=== PATIENT | female | born 1955 | race Caucasian/White ===

== ENCOUNTER 2017-05-10 05:40 | Outpatient (CLI) | payer OTHER ==
[~2017-05-10] VITALS: Ht 158.8 cm; Wt 95.3 kg
[2017-05-13] MEDS ORDERED: NF-DICLOTA PO (14:59)
== END 2017-05-10 12:21 ==
LOC: PREOP 05:40
PROVIDERS: ATTEND Surgery
DX: Z01.818 Encounter for other preprocedural examination (principal); Z12.11 Encounter for screening for malignant neoplasm of colon; K21.9 Gastro-esophageal reflux disease without esophagitis

== ENCOUNTER 2017-05-13 14:00 | Day surgery (SDC) | payer OTHER ==
[~2017-05-13] VITALS: Ht 158.8 cm; Wt 95.3 kg
--- OUTSIDE RECORDS SUMMARY | 2017-05-13 14:05 | XMS REPORT ---
Author Author SIMI GARCIA [facility] eClinicalWorks Address Unknown Phone Unavailable Care Team Providers Care Nitroglycerin Separator Operator Name Role Phone SIMI GARCIA CP Unavailable Allergies, Adverse Reactions, Alerts Substance Reaction Event Type N.K.D.A. Info Not Available Non Drug Allergy Problems Problem Type Condition Code Onset Dates Condition Status Assessment Non-compliant behavior R46.89 Active Problem Diabetes type 2, uncontrolled E11.65 Active Assessment Diabetes type 2, uncontrolled E11.65 Active Problem Denial R45.89 Active Problem Obesity E66.9 Active Problem Non-compliant behavior R46.89 Active Problem Gastroesophageal reflux disease without esophagitis K21.9 Active Problem Noncompliance Z91.19 Active Problem Morbid obesity due to excess calories E66.01 Active Problem Constipation, unspecified constipation type K59.00 Active Assessment Gastroesophageal reflux disease without esophagitis K21.9 Active Assessment Constipation, unspecified constipation type K59.00 Active Assessment Morbid obesity due to excess calories E66.01 Active Assessment Denial R45.89 Active Medications Medication Code System Code Instructions Start Date End Date Status Dosage Chlorzoxazone [facility] 44418461120 500 MG TAKE ONE TABLET BY MOUTH ONCE DAILY NEEDED FOR PAIN. Pen [place] [facility] [address]-27 31G X 6 MM Once a day Aug 31, 2015 as directed Victoza [facility] [address]-22 18 MG/3ML Subcutaneous Once a day Jul 26, 2015 0.3 ml Hydrochlorothiazide [facility] 53594323907 12.5 MG 1 capsule by Oral route 1 time per day [place] [facility] [address]-72 5-325 MG Orally PRN Jul 26, 2015 1 tablet as needed Nexium [facility] [address]-60 40 MG Orally Once a day Nov 03, 2015 1 capsule Gabapentin [facility] [address]-23 600 mg December 07, 2014 1 Tablet by Oral route every 8 hours with food Celebrex [facility] [address]-49 200 MG Orally Once a day as needed for pain December 14, 2014 1 capsule Invokana [facility] [address]-80 100 MG Orally Every AM Oct 05, 2015 1 tablet Metformin HCl [facility] 75326348433 1000 MG TAKE 1 TABLET BY MOUTH 2 TIMES PER DAY WITH FOOD Xenical [facility] [address]-98 120 MG Orally 2 times a day Nov 03, 2015 1 capsule with meals Lovastatin [facility] [address]-32 40 mg December 07, 2014 take 1 tablet ( 40 mg) by oral route once daily with the evening meal Lidoderm [facility] [address]-92 5 %(700 mg/patch) Jul 07, 2014 1 PATCH by Topical route 1 time per day (remove patch(s) after 12 hours) Requip [facility] [address]-83 2 MG Orally Once a day 1 tablet by Oral route 1 time per day Amitriptyline HCl [facility] [address]-48 75 MG Orally Once a day February 15, 2015 1 tablet at bedtime for sleep Lisinopril [facility] 78957342753 20 MG take 1 tablet by Oral route 1 time per day Ferrous Sulfate [facility] [address]-50 325 (65 Fe) MG Orally Once a day 1 Tablet by Oral route 1 time per day 1 tablet by oral route 1 time per day Colace [facility] 61135213830 100 MG 1 capsule by Oral route 2 times per day PRN Procedures Procedure Coding System Code Date GLUCOSE BLOOD TEST CPT-4 59160 Nov 03, 2015 Office Visit, Est Pt., Level 4 CPT-4 98466 Nov 03, 2015 GLYCATED HEMOGLOBIN TEST CPT-4 53162 Nov 03, 2015 Vital Signs Date/Time: Nov 03, 2015 Temperature 98.3 F Weight 215.6 lbs Height 62 in BMI 39.43 Index Blood Pressure Diastolic 82 mmHg Blood Pressure Systolic 118 mmHg Cardiac Monitoring Heart Rate 96 bpm Results No Known Results Summary Purpose eClinicalWorks Submission
--- OUTSIDE RECORDS SUMMARY | 2017-05-13 14:05 | XMS REPORT ---
Author Author LOLIS RAYO [facility] eClinicalWorks Address Unknown Phone Unavailable Care Team Providers Care Leg Breaker Name Role Phone LOLIS RAYO CP Unavailable Allergies No Known Allergies Problems Problem Type Condition Code Onset Dates Condition Status Problem Depression F32.9 Active Problem Other chronic pain G89.29 Active Problem Reina infection of genital region B37.49 Active Problem New daily persistent headache G44.52 Active Problem Restless legs syndrome G25.81 Active Problem Dizziness R42 Active Problem Chronic tension-type headache, intractable G44.221 Active Problem Pain in left shoulder M25.512 Active Problem Other iron deficiency anemia D50.8 Active Problem Arthralgia, unspecified joint M25.50 Active Problem Gastroesophageal reflux disease without esophagitis K21.9 Active Problem Constipation, unspecified constipation type K59.00 Active Problem Diabetes type 2, uncontrolled E11.65 Active Problem Noncompliance Z91.19 Active Problem Denial R45.89 Active Problem Non-compliant behavior R46.89 Active Problem Morbid obesity due to excess calories E66.01 Active Problem Neuropathy G62.9 Active Problem Obesity E66.9 Active Problem Insomnia G47.00 Active Medications Medication Code System Code Instructions Start Date End Date Status Dosage Cyclobenzaprine HCl [facility] 53996566709 10 MG orally twice daily TAKE 1 TABLET BY MOUTH TWICE DAILY NEEDED FOR MUSCLE PAIN Results No Known Results Summary Purpose eClinicalWorks Submission
--- OUTSIDE RECORDS SUMMARY | 2017-05-13 14:05 | XMS REPORT ---
Author Author SIMI GARCIA Organization eClinicalWorks Address Unknown Phone Unavailable Care Team Providers Care Roulette Dealer Name Role Phone SIMI GARCIA CP Unavailable Allergies No Known Allergies Problems Problem Type Condition Code Onset Dates Condition Status Problem Diabetes type 2, uncontrolled E11.65 Active Problem Noncompliance Z91.19 Active Medications No Known Medications Results No Known Results Summary Purpose eClinicalWorks Submission
--- OUTSIDE RECORDS SUMMARY | 2017-05-13 14:05 | XMS REPORT ---
Author Author LOLIS RAYO Organization eClinicalWorks Address Unknown Phone Unavailable Care Team Providers Care Mottler Operator Name Role Phone LOLIS RAYO CP Unavailable Allergies No Known Allergies Problems Problem Type Condition Code Onset Dates Condition Status Problem Neuropathy G62.9 Active Problem Depression F32.9 Active Problem Insomnia G47.00 Active Problem Other iron deficiency anemia D50.8 Active Problem Arthralgia, unspecified joint M25.50 Active Problem Restless legs syndrome G25.81 Active Problem Other chronic pain G89.29 Active Problem Reina infection of genital region B37.49 Active Problem Chronic tension-type headache, intractable G44.221 Active Problem Pain in left shoulder M25.512 Active Problem Diabetes type 2, uncontrolled E11.65 Active Problem Noncompliance Z91.19 Active Problem Morbid obesity due to excess calories E66.01 Active Problem Obesity E66.9 Active Problem Gastroesophageal reflux disease without esophagitis K21.9 Active Problem Denial R45.89 Active Problem Constipation, unspecified constipation type K59.00 Active Problem Non-compliant behavior R46.89 Active Medications No Known Medications Results No Known Results Summary Purpose eClinicalWorks Submission
--- OUTSIDE RECORDS SUMMARY | 2017-05-13 14:05 | XMS REPORT ---
Author Author SIMI GARCIA Organization eClinicalWorks Address Unknown Phone Unavailable Care Team Providers Care Floor Associate Name Role Phone SIMI GARCIA CP Unavailable Allergies No Known Allergies Problems Problem Type Condition Code Onset Dates Condition Status Problem Diabetes type 2, uncontrolled E11.65 Active Problem Noncompliance Z91.19 Active Medications Medication Code System Code Instructions Start Date End Date Status Dosage Victoza [facility] [address]-47 18 MG/3ML Subcutaneous Once a day Jul 26, 2015 0.3 ml Invokana [facility] [address]-41 100 MG Orally Every AM Oct 05, 2015 1 tablet Results No Known Results Summary Purpose eClinicalWorks Submission
--- OUTSIDE RECORDS SUMMARY | 2017-05-13 14:05 | XMS REPORT ---
Author Author LOLIS RAYO [facility] eClinicalWorks Address Unknown Phone Unavailable Care Team Providers Care Spa Host Name Role Phone LOLIS RAYO CP Unavailable [...] Instructions Start Date End Date Status Dosage Sertraline HCl [facility] [address]-96 50 mg Orally Once a day Jun 20, 2016 1 tablet Ropinirole HCl [facility] [address]-84 4 MG Orally Once a day May 08, 2016 1 tablet 1 to 3 hours before bedtime Results No Known Results Summary Purpose eClinicalWorks Submission
--- OUTSIDE RECORDS SUMMARY | 2017-05-13 14:05 | XMS REPORT ---
Author Author SIMI GARCIA Organization eClinicalWorks Address Unknown Phone Unavailable Care Team Providers Care Financial Analyst Intern Name Role Phone SIMI GARCIA CP Unavailable Allergies No Known Allergies Problems Problem Type Condition Code Onset Dates Condition Status Problem Noncompliance Z91.19 Active Problem Diabetes type 2, uncontrolled E11.65 Active Problem Non-compliant behavior R46.89 Active Problem Denial R45.89 Active Problem Neuropathy G62.9 Active Problem Constipation, unspecified constipation type K59.00 Active Problem Gastroesophageal reflux disease without esophagitis K21.9 Active Problem Obesity E66.9 Active Problem Morbid obesity due to excess calories E66.01 Active Medications Medication Code System Code Instructions Start Date End Date Status Dosage Trulicity [facility] [address]-87 1.5 MG/0.5ML Subcutaneous once weekly December 0.5 ml Results No Known Results Summary Purpose eClinicalWorks Submission
--- OUTSIDE RECORDS SUMMARY | 2017-05-13 14:05 | XMS REPORT ---
Author Author LOLIS RAYO Organization [facility] Address [address] [place] [address] Care Team Providers Care Dust Mill Operator Name Role Phone WEST RAYONETTE Unavailable PROBLEMS Type Condition ICD9-CM Code [id number] Code Onset Dates Condition Status SNOMED Code Problem Reina infection of genital region B37.49 Active 046530746 Problem Pain in left shoulder M25.512 Active 23551086 Problem Other chronic pain G89.29 Active 15787664 Problem Dizziness R42 Active 303021565 Problem Diabetes type 2, uncontrolled E11.65 Active 781773893 Problem New daily persistent headache G44.52 Active 580878106 Problem Arthralgia, unspecified joint M25.50 Active 81660457 Problem Chronic tension-type headache, intractable G44.221 Active 156079727 Problem Restless legs syndrome G25.81 Active 79078963 Problem Other iron deficiency anemia D50.8 Active 29027849 Problem Constipation, unspecified constipation type K59.00 Active 22060485 Problem Morbid obesity due to excess calories E66.01 Active 730983415 Problem Noncompliance Z91.19 Active 7912609 Problem Gastroesophageal reflux disease without esophagitis K21.9 Active 793280223 Problem Non-compliant behavior R46.89 Active 000249734 Problem Neuropathy G62.9 Active 844991441 Problem Obesity E66.9 Active 589317710 Problem Insomnia G47.00 Active 897190718 Problem Denial R45.89 Active 47168459 Problem Depression F32.9 Active 84674069 ALLERGIES Unknown Allergies SOCIAL HISTORY No smoking Hx information available PLAN OF CARE VITAL SIGNS MEDICATIONS Unknown Medications RESULTS No Results PROCEDURES No Known procedures IMMUNIZATIONS No Known Immunizations
--- OUTSIDE RECORDS SUMMARY | 2017-05-13 14:06 | XMS REPORT ---
Author Author SIMI GARCIA Organization eClinicalWorks Address Unknown Phone Unavailable Care Team Providers Care Route Vending Machine Servicer Name Role Phone SIMI GARCIA CP Unavailable Allergies No Known Allergies Problems Problem Type Condition Code Onset Dates Condition Status Problem Diabetes type 2, uncontrolled E11.65 Active Problem Noncompliance Z91.19 Active Medications Medication Code System Code Instructions Start Date End Date Status Dosage Ferrous Sulfate [facility] [address]-24 325 (65 Fe) MG Orally Once a day 1 Tablet by Oral route 1 time per day 1 tablet by oral route 1 time per day Results No Known Results Summary Purpose eClinicalWorks Submission
--- OUTSIDE RECORDS SUMMARY | 2017-05-13 14:06 | XMS REPORT ---
Author LOLIS Stinson [facility] eClinicalWorks Address Unknown Phone Unavailable Care Team Providers Care Wound Care Nurse Name Role Phone LOLIS RAYO CP Unavailable Allergies, Adverse Reactions, Alerts Substance Reaction Event Type Victoza rash Drug Allergy Problems Problem Type Condition Code Onset Dates Condition Status Assessment Restless legs syndrome G25.81 Active Assessment Depression F32.9 Active Assessment Insomnia G47.00 Active Assessment New daily persistent headache G44.52 Active Assessment Dizziness R42 Active Problem Neuropathy G62.9 Active Assessment Neuropathy G62.9 Active Problem Insomnia G47.00 Active Assessment Gastroesophageal reflux disease without esophagitis K21.9 Active Problem Depression F32.9 Active Problem Other chronic pain G89.29 Active Problem Reina infection of genital region B37.49 Active Problem New daily persistent headache G44.52 Active Problem Restless legs syndrome G25.81 Active Assessment Diabetes type 2, uncontrolled E11.65 Active Assessment Noncompliance Z91.19 Active Problem Dizziness R42 Active Assessment Constipation, unspecified constipation type K59.00 Active Problem Chronic tension-type headache, intractable G44.221 [...] calories E66.01 Active Problem Obesity E66.9 Active Medications Medication Code System Code Instructions Start Date End Date Status Dosage Docusate Sodium [facility] 10120798837 100 MG TAKE 1 CAPSULE TWO TIMES DAILY NEEDED Trulicity [facility] [address]-61 1.5 MG/0.5ML Subcutaneous once weekly December 0.5 ml Invokana [facility] [address]-18 300 MG Orally Once a day in AM Oct 05, 2015 1 tablet Trazodone HCl [facility] 68786564012 100 MG Orally Once a day 1 tablet at bedtime Gabapentin [facility] 97804672791 600 MG 1 Tablet by Oral route every 8 hours with food Topamax [facility] [address]-65 50 mg Orally Twice a day May 08, 2016 1 tablet Ferrous Sulfate [facility] 40514655684 325 (65 Fe) MG TAKE 1 TABLET DAILY MiraLax [facility] [address]-79 17 gm/dose Orally Once a day January 31, 2016 as directed Celebrex [facility] [address]-58 200 MG Orally Once a day as needed for pain December 14, 2014 1 capsule Ropinirole HCl [facility] [address]-33 4 MG Orally Once a day May 08, 2016 1 tablet 1 to 3 hours before bedtime Hydrochlorothiazide [facility] 49993898788 12.5 MG TAKE 1 CAPSULE BY MOUTH ONCE DAILY. Nexium [facility] [address]-50 40 mg Once a day TAKE ONE CAPSULE BY MOUTH ONCE DAILY. Pen [place] [facility] [address]-86 31G X 6 MM Once a day Aug 31, 2015 as directed Colace [facility] 85813644179 100 MG 1 capsule by Oral route 2 times per day PRN Metformin HCl [facility] 10299620074 1000 MG TAKE 1 TABLET BY MOUTH 2 TIMES PER DAY WITH FOOD Lovastatin [facility] 27132845815 40 MG TAKE ONE TABLET BY MOUTH ONCE DAILY WITH THE EVENING MEAL. Zoloft [facility] [address]-94 100 MG Orally Once a day 1 tablet Cyclobenzaprine HCl [facility] 73860947238 10 MG TAKE 1 TABLET BY MOUTH TWICE DAILY NEEDED FOR MUSCLE PAIN [place] [facility] [address]-46 5-325 MG Orally 2 times a day Jul 26, 2015 1 tablet as needed for pain Chlorzoxazone [facility] 39191478396 500 MG Orally Once a day as needed for pain 1 tablet Procedures Procedure Coding System Code Date Office Visit, Est Pt., Level 4 CPT-4 94993 May 28, 2016 TORADOL (IM) 60 MG/2ML (UP TO 15 MG) CPT-4 J1885 May 28, 2016 GLYCATED HEMOGLOBIN TEST CPT-4 98138 May 28, 2016 THER/PROPH/DIAG INJ, SC/IM CPT-4 05664 May 28, 2016 Vital Signs Date/Time: May 28, 2016 Cardiac Monitoring Heart Rate 80 bpm Weight 195.7 lbs Height 62 in BMI 35.79 Index Blood Pressure Diastolic 77 mmHg Blood Pressure Systolic 110 mmHg Results No Known Results Summary Purpose eClinicalWorks Submission
--- OUTSIDE RECORDS SUMMARY | 2017-05-13 14:06 | XMS REPORT ---
Author Author SIMI GARCIA Organization eClinicalWorks Address Unknown Phone Unavailable Care Team Providers Care Mortgage Counselor Name Role Phone SIMI GARCIA CP Unavailable Allergies No Known Allergies Problems Problem Type Condition Code Onset Dates Condition Status Problem Diabetes type 2, uncontrolled E11.65 Active Problem Noncompliance Z91.19 Active Medications No Known Medications Results No Known Results Summary Purpose eClinicalWorks Submission
--- OUTSIDE RECORDS SUMMARY | 2017-05-13 14:06 | XMS REPORT ---
Author LOLIS Stinson [facility] eClinicalWorks Address Unknown Phone Unavailable Care Team Providers Care Substance Abuse Services Director Name Role Phone LOLIS RAYO CP Unavailable Allergies, Adverse Reactions, Alerts Substance Reaction Event Type Victoza rash Drug Allergy Problems Problem Type Condition Code Onset Dates Condition Status Assessment Neuropathy G62.9 Active Assessment Arthralgia, unspecified joint M25.50 Active Assessment Chronic tension-type headache, intractable G44.221 Active Assessment Constipation, unspecified constipation type K59.00 Active Assessment Other chronic pain G89.29 Active Assessment Other iron deficiency anemia D50.8 Active Assessment Restless legs syndrome G25.81 Active Assessment Insomnia G47.00 Active Problem Neuropathy G62.9 Active Assessment Depression F32.9 Active Problem Insomnia G47.00 Active Assessment Gastroesophageal reflux disease without esophagitis K21.9 Active Problem Depression F32.9 Active Problem Other chronic pain G89.29 Active Problem Reina infection of genital region B37.49 Active Problem New daily persistent headache G44.52 Active Problem Restless legs syndrome G25.81 Active Assessment Diabetes type 2, uncontrolled E11.65 Active Assessment Noncompliance Z91.19 Active Problem Dizziness R42 Active Assessment Obesity E66.9 Active Problem Chronic tension-type headache, intractable G44.221 [...] Start Date End Date Status Dosage Chlorzoxazone [facility] 54842089769 500 MG Orally Once a day as needed for pain 1 tablet Docusate Sodium [facility] 07698419595 100 MG TAKE 1 CAPSULE TWO TIMES DAILY NEEDED Metformin HCl [facility] 99125396566 1000 MG TAKE 1 TABLET BY MOUTH 2 TIMES PER DAY WITH FOOD Lovastatin [facility] 46007410950 40 MG TAKE ONE TABLET BY MOUTH ONCE DAILY WITH THE EVENING MEAL. Topamax [facility] [address]-09 100 Orally Twice a day May 08, 2016 1 tablet Colace [facility] 64991778589 100 MG 1 capsule by Oral route 2 times per day PRN Gabapentin [facility] 80056150058 600 MG 1 Tablet by Oral route every 8 hours with food Hydrochlorothiazide [facility] 23986827401 12.5 MG TAKE 1 CAPSULE BY MOUTH ONCE DAILY. Cyclobenzaprine HCl [facility] 05201934480 10 MG TAKE 1 TABLET BY MOUTH TWICE DAILY NEEDED FOR MUSCLE PAIN Ferrous Sulfate [facility] 99010470893 325 (65 Fe) MG TAKE 1 TABLET DAILY Pen [place] [facility] [address]-93 31G X 6 MM Once a day Aug 31, 2015 as directed Xenical [facility] [address]-58 120 MG Orally Three times a day Jun 20, 2016 Sep 18, 2016 1 capsule with meals Nexium [facility] 71464008955 40 MG TAKE ONE CAPSULE BY MOUTH ONCE DAILY. Invokana [facility] [address]-53 300 MG Orally Once a day in AM Oct 05, 2015 1 tablet Ropinirole HCl [facility] [address]-56 4 MG Orally Once a day May 08, 2016 1 tablet 1 to 3 hours before bedtime [place] [facility] [address]-93 5-325 MG Orally 2 times a day Jul 26, 2015 1 tablet as needed for pain cetirizine [facility] [address]-19 10 mg February 04, 2014 1 tablet by Oral route 1 daily Trazodone HCl [facility] 88155452405 100 MG Orally Once a day 1 tablet at bedtime Trulicity [facility] [address]-31 1.5 MG/0.5ML Subcutaneous once weekly December 0.5 ml Celebrex [facility] [address]-15 200 MG Orally Once a day as needed for pain December 14, 2014 1 capsule Sertraline HCl [facility] [address]-92 50 mg Orally Once a day Jun 20, 2016 1 tablet Procedures Procedure Coding System Code Date Office Visit, Est Pt., Level 4 CPT-4 17406 Jul 20, 2016 Vital Signs Date/Time: Jul 20, 2016 Cardiac Monitoring Heart Rate 76 bpm Weight 191.0 lbs Height 62 in BMI 34.93 Index Blood Pressure Diastolic 88 mmHg Blood Pressure Systolic 130 mmHg Results No Known Results Summary Purpose eClinicalWorks Submission
--- OUTSIDE RECORDS SUMMARY | 2017-05-13 14:06 | XMS REPORT ---
Author Author LOLIS RAYO [facility] eClinicalWorks Address Unknown Phone Unavailable Care Team Providers Care Business Services Vice President Name Role Phone LOLIS RAYO Unavailable Allergies No Known Allergies Problems Problem Type Condition Code Onset Dates Condition Status Problem Noncompliance Z91.19 Active Problem Constipation, unspecified constipation type K59.00 Active Problem Gastroesophageal reflux disease without esophagitis K21.9 Active Problem Diabetes type 2, uncontrolled E11.65 Active Problem Insomnia G47.00 Active Problem Neuropathy G62.9 Active Problem Depression F32.9 Active Problem Obesity E66.9 Active Problem Morbid obesity due to excess calories E66.01 Active Problem Non-compliant behavior R46.89 Active Problem Denial R45.89 Active Medications No Known Medications Results No Known Results Summary Purpose eClinicalWorks Submission
--- OUTSIDE RECORDS SUMMARY | 2017-05-13 14:06 | XMS REPORT ---
Author Author LOLIS RAYO Organization [facility] Address [address] [place] [address] Care Team Providers Care Family Law Attorney Name Role Phone WEST RAYONETTE Unavailable PROBLEMS Type Condition ICD9-CM Code [id number] Code Onset Dates Condition Status SNOMED Code Problem Reina infection of genital region B37.49 Active 433900574 Problem Pain in left shoulder M25.512 Active 20810710 Problem Other chronic pain G89.29 Active 05942123 Problem Dizziness R42 Active 775771620 Problem Diabetes type 2, uncontrolled E11.65 Active 642266155 Problem New daily persistent headache G44.52 Active 786867475 Problem Arthralgia, unspecified joint M25.50 Active 51532085 Problem Chronic tension-type headache, intractable G44.221 Active 515663294 Problem Restless legs syndrome G25.81 Active 31374675 Problem Other iron deficiency anemia D50.8 Active 20967730 Problem Constipation, unspecified constipation type K59.00 Active 26126685 Problem Morbid obesity due to excess calories E66.01 Active 785327518 Problem Noncompliance Z91.19 Active 5949604 Problem Gastroesophageal reflux disease without esophagitis K21.9 Active 618746489 Problem Non-compliant behavior R46.89 Active 388152089 Problem Neuropathy G62.9 Active 673974169 Problem Obesity E66.9 Active 475988759 Problem Insomnia G47.00 Active 998598742 Problem Denial R45.89 Active 07693983 Problem Depression F32.9 Active 91468706 ALLERGIES Unknown Allergies SOCIAL HISTORY No smoking Hx information available PLAN OF CARE VITAL SIGNS MEDICATIONS Unknown Medications RESULTS No Results PROCEDURES No Known procedures IMMUNIZATIONS No Known Immunizations
--- OUTSIDE RECORDS SUMMARY | 2017-05-13 14:06 | XMS REPORT ---
Author Author SIMI GARCIA [facility] eClinicalWorks Address Unknown Phone Unavailable Care Team Providers Care Time Study Analyst Name Role Phone SIMI GARCIA CP Unavailable Allergies, Adverse Reactions, Alerts Substance Reaction Event Type N.K.D.A. Info Not Available Non Drug Allergy Problems Problem Type Condition Code Onset Dates Condition Status Assessment Diabetes type 2, uncontrolled E11.65 Active Assessment Restless leg G25.81 Active Problem Diabetes type 2, uncontrolled E11.65 Active Assessment Diabetic polyneuropathy associated with type 2 diabetes mellitus E11.42 Active Assessment Noncompliance by refusing intervention or support Z53.29 Active Medications Medication Code System Code Instructions Start Date End Date Status Dosage Ferrous Sulfate [facility] 26651756521 325 (65 Fe) MG 1 Tablet by Oral route 1 time per day 1 tablet by oral route 1 time per day Colace [facility] 56053493970 100 MG 1 capsule by Oral route 2 times per day PRN Pantoprazole Sodium [facility] 74846203304 40 MG Orally Once a day 1 tablet for heartburn cetirizine [facility] [address]-35 10 mg February 04, 2014 1 tablet by Oral route 1 daily Januvia [facility] [address]-65 100 mg December 14, 2014 1 tablet by Oral route 1 time per day PALS Victoza [facility] [address]-93 18 MG/3ML Subcutaneous Once a day Jul 26, 2015 0.2 ml Chlorzoxazone [facility] 12880861870 500 MG 1 tablet by Oral route 1 time per day PRN pain Lisinopril [facility] 82496508100 20 MG take 1 tablet by Oral route 1 time per day Gabapentin [facility] [address]-80 600 mg December 07, 2014 1 Tablet by Oral route every 8 hours with food Requip [facility] [address]-36 2 MG Orally Once a day 1 tablet by Oral route 1 time per day Lovastatin [facility] [address]-47 40 mg December 07, 2014 take 1 tablet ( 40 mg) by oral route once daily with the evening meal Cyclobenzaprine HCl [facility] 98878532458 10 MG 1 tablet 2 times per day PRN muscle pain Hydrochlorothiazide [facility] 71524344450 12.5 MG 1 capsule by Oral route 1 time per day Amitriptyline HCl [facility] [address]-72 75 MG Orally Once a day February 15, 2015 1 tablet at bedtime for sleep [place] [facility] [address]-62 5-325 MG Orally PRN Jul 26, 2015 1 tablet as needed Celebrex [facility] [address]-44 200 mg December 14, 2014 1 capsule by Oral route 1 time per day PRN pain, PALS Lidoderm [facility] [address]-56 5 %(700 mg/patch) Jul 07, 2014 1 PATCH by Topical route 1 time per day (remove patch(s) after 12 hours) metformin [facility] [address]-74 1,000 mg December 07, 2014 take 1 tablet (1,000 mg) by oral route 2 times per day with morning and evening meals Procedures Procedure Coding System Code Date GLUCOSE BLOOD TEST CPT-4 44928 Jul 26, 2015 Office Visit, Est Pt., Level 4 CPT-4 77482 Jul 26, 2015 GLYCATED HEMOGLOBIN TEST CPT-4 73303 Jul 26, 2015 Vital Signs Date/Time: Jul 26, 2015 Temperature 98.3 F Weight 223.7 lbs Height 62 in BMI 40.91 Index Blood Pressure Diastolic 84 mmHg Blood Pressure Systolic 128 mmHg Cardiac Monitoring Heart Rate 84 bpm Results No Known Results Summary Purpose eClinicalWorks Submission
--- OUTSIDE RECORDS SUMMARY | 2017-05-13 14:06 | XMS REPORT ---
Author Author LOLIS RAYO Organization [facility] Address [address] [place] [address] Care Team Providers Care Lead Scientist Name Role Phone WEST RAYONETTE Unavailable PROBLEMS Type Condition ICD9-CM Code [id number] Code Onset Dates Condition Status SNOMED Code Problem Reina infection of genital region B37.49 Active 414913360 Problem Pain in left shoulder M25.512 Active 20398977 Problem Other chronic pain G89.29 Active 64955270 Problem Dizziness R42 Active 734749964 Problem Diabetes type 2, uncontrolled E11.65 Active 312678864 Problem New daily persistent headache G44.52 Active 650923529 Assessment New daily persistent headache G44.52 May, Active [id number] Assessment Major depressive disorder with single episode, remission status unspecified F32.9 May, Active 12863871 Problem Arthralgia, unspecified joint M25.50 Active 31375665 Problem Chronic tension-type headache, intractable G44.221 Active 270336504 Problem Restless legs syndrome G25.81 Active 81267635 Problem Other iron deficiency anemia D50.8 Active 84679007 Problem Constipation, unspecified constipation type K59.00 Active 31828085 Problem Morbid obesity due to excess calories E66.01 Active 676652254 Problem Noncompliance Z91.19 Active 0595771 Problem Gastroesophageal reflux disease without esophagitis K21.9 Active 228304131 Problem Non-compliant behavior R46.89 Active 565790064 Problem Neuropathy G62.9 Active 346211363 Problem Obesity E66.9 Active 031137822 Problem Insomnia G47.00 Active 023185290 Problem Denial R45.89 Active 52765488 Problem Depression F32.9 Active 41022353 ALLERGIES Substance Reaction Event Type Date Status Victoza rash Drug Allergy May, Active SOCIAL HISTORY No smoking Hx information available PLAN OF CARE VITAL SIGNS Height 62 in 2016-06-08 Weight 196.4 lbs 2016-06-08 Heart Rate 80 bpm 2016-06-08 Respiratory Rate 18 2016-06-08 BMI 35.92 kg/m2 2016-06-08 Blood pressure systolic 114 mmHg 2016-06-08 Blood pressure diastolic 80 mmHg 2016-06-08 MEDICATIONS Medication Instructions Dosage Frequency Start Date End Date Duration Status Topamax 100 Orally Twice a day 1 tablet 12h Apr, 30 day(s) Active Celebrex 200 MG Orally Once a day as needed for pain 1 capsule Nov, Active Ferrous Sulfate 325 (65 Fe) MG TAKE 1 TABLET DAILY Active Ropinirole HCl 4 MG Orally Once a day 1 tablet 1 to 3 hours before bedtime 24h Apr, Active Invokana 300 MG Orally Once a day in AM 1 tablet Sep, Active Lovastatin 40 MG TAKE ONE TABLET BY MOUTH ONCE DAILY WITH THE EVENING MEAL. 90 Active cetirizine 10 mg 1 tablet by Oral route 1 daily January, Active Hydrochlorothiazide 12.5 MG TAKE 1 CAPSULE BY MOUTH ONCE DAILY. Active Pen [place] 31G X 6 MM as directed 24h Aug, Active Zoloft 100 MG Orally Once a day 1 tablet 24h Active Cyclobenzaprine HCl 10 MG TAKE 1 TABLET BY MOUTH TWICE DAILY NEEDED FOR MUSCLE PAIN Active Trazodone HCl 100 MG Orally Once a day 1 tablet at bedtime 24h Active Metformin HCl 1000 MG TAKE 1 TABLET BY MOUTH 2 TIMES PER DAY WITH FOOD Active Chlorzoxazone 500 MG Orally Once a day as needed for pain 1 tablet Active Trulicity 1.5 MG/0.5ML Subcutaneous once weekly 0.5 ml Dec, Active Gabapentin 600 MG 1 Tablet by Oral route every 8 hours with food Active Docusate Sodium 100 MG TAKE 1 CAPSULE TWO TIMES DAILY NEEDED Active Nexium 40 mg TAKE ONE CAPSULE BY MOUTH ONCE DAILY. 24h Active Bells 5-325 MG Orally 2 times a day 1 tablet as needed for pain 12h Jun Active Colace 100 MG 1 capsule by Oral route 2 times per day PRN Active RESULTS Name Result Date Reference Range CT Scan : Head/Brain w/o Contrast 2016-06-13 PROCEDURES Procedure Date Ordered Related Diagnosis Body Site Office Visit, Est Pt., Level 4 Jun 08, 2016 IMMUNIZATIONS No Known Immunizations
--- OUTSIDE RECORDS SUMMARY | 2017-05-13 14:07 | XMS REPORT ---
Author Author SIMI GARCIA [facility] eClinicalWorks Address Unknown Phone Unavailable Care Team Providers Care Mechanical Assembly Technician Name Role Phone SIMI GARCIA CP Unavailable Allergies, Adverse Reactions, Alerts Substance Reaction Event Type N.K.D.A. Info Not Available Non Drug Allergy Problems Problem Type Condition Code Onset Dates Condition Status Problem Diabetes type 2, uncontrolled E11.65 Active Assessment Diabetes type 2, uncontrolled E11.65 Active Problem Noncompliance Z91.19 Active Assessment Noncompliance Z91.19 Active Medications Medication Code System Code Instructions Start Date End Date Status Dosage Amitriptyline HCl [facility] [address]-19 75 MG Orally Once a day February 15, 2015 1 tablet at bedtime for sleep Requip [facility] [address]-77 2 MG Orally Once a day 1 tablet by Oral route 1 time per day Chlorzoxazone [facility] 53979790811 500 MG 1 tablet by Oral route 1 time per day PRN pain Hydrochlorothiazide [facility] 28846960923 12.5 MG 1 capsule by Oral route 1 time per day Gabapentin [facility] [address]-78 600 mg December 07, 2014 1 Tablet by Oral route every 8 hours with food Celebrex [facility] [address]-51 200 mg December 14, 2014 1 capsule by Oral route 1 time per day PRN pain, PALS [place] [facility] [address]-95 5-325 MG Orally PRN Jul 26, 2015 1 tablet as needed Lisinopril [facility] 70098413120 20 MG take 1 tablet by Oral route 1 time per day Januvia [facility] [address]-53 100 mg December 14, 2014 1 tablet by Oral route 1 time per day PALS Colace [facility] 40392685233 100 MG 1 capsule by Oral route 2 times per day PRN Metformin HCl [facility] 51342279407 1000 MG TAKE 1 TABLET BY MOUTH 2 TIMES PER DAY WITH FOOD Lidoderm [facility] [address]-66 5 %(700 mg/patch) Jul 07, 2014 1 PATCH by Topical route 1 time per day (remove patch(s) after 12 hours) Lovastatin [facility] [address]-81 40 mg December 07, 2014 take 1 tablet ( 40 mg) by oral route once daily with the evening meal Ferrous Sulfate [facility] 63913464124 325 (65 Fe) MG 1 Tablet by Oral route 1 time per day 1 tablet by oral route 1 time per day Pantoprazole Sodium [facility] 75761111286 40 MG Orally Once a day 1 tablet for heartburn Procedures Procedure Coding System Code Date Office Visit, Est Pt., Level 3 CPT-4 64120 Aug 30, 2015 GLUCOSE BLOOD TEST CPT-4 84560 Aug 30, 2015 Vital Signs Date/Time: Aug 30, 2015 Temperature 97.0 F Weight 220.1 lbs Height 62 in BMI 40.25 Index Blood Pressure Diastolic 88 mmHg Blood Pressure Systolic 112 mmHg Cardiac Monitoring Heart Rate 95 bpm Results No Known Results Summary Purpose eClinicalWorks Submission
--- OUTSIDE RECORDS SUMMARY | 2017-05-13 14:07 | XMS REPORT ---
Author Author SIMI GARCIA Organization eClinicalWorks Address Unknown Phone Unavailable Care Team Providers Care Color Shop Helper Name Role Phone SIMI GARCIA CP Unavailable Allergies No Known Allergies Problems Problem Type Condition Code Onset Dates Condition Status Problem Diabetes type 2, uncontrolled E11.65 Active Problem Noncompliance Z91.19 Active Medications No Known Medications Results No Known Results Summary Purpose eClinicalWorks Submission
--- OUTSIDE RECORDS SUMMARY | 2017-05-13 14:07 | XMS REPORT ---
Author Author LOLIS RAYO Organization [facility] Address [address] [place] [address] Care Team Providers Care Scouring Machine Tender Name Role Phone WEST RAYONETTE Unavailable PROBLEMS Type Condition ICD9-CM Code [id number] Code Onset Dates Condition Status SNOMED Code Problem Reina infection of genital region B37.49 Active 586730294 Problem Pain in left shoulder M25.512 Active 15988000 Problem Other chronic pain G89.29 Active 73262692 Problem Dizziness R42 Active 306299082 Problem Diabetes type 2, uncontrolled E11.65 Active 760977405 Problem New daily persistent headache G44.52 Active 008683106 Assessment Chronic tension-type headache, intractable G44.221 19 May, 2016 Active 582061447 Problem Arthralgia, unspecified joint M25.50 Active 98661724 Problem Chronic tension-type headache, intractable G44.221 Active 155278462 Problem Restless legs syndrome G25.81 Active 68717819 Problem Other iron deficiency anemia D50.8 Active 57954477 Problem Constipation, unspecified constipation type K59.00 Active 33972486 Problem Morbid obesity due to excess calories E66.01 Active 182372596 Problem Noncompliance Z91.19 Active 9052735 Problem Gastroesophageal reflux disease without esophagitis K21.9 Active 761803857 Problem Non-compliant behavior R46.89 Active 645439737 Problem Neuropathy G62.9 Active 590898199 Problem Obesity E66.9 Active 123096747 Problem Insomnia G47.00 Active 711892322 Problem Denial R45.89 Active 36113429 Problem Depression F32.9 Active 49866913 ALLERGIES Unknown Allergies SOCIAL HISTORY No smoking Hx information available PLAN OF CARE VITAL SIGNS MEDICATIONS Unknown Medications RESULTS Name Result Date Reference Range MRI : Brain w/ and w/o Contrast 2016-06-25 PROCEDURES No Known procedures IMMUNIZATIONS No Known Immunizations
--- OUTSIDE RECORDS SUMMARY | 2017-05-13 14:07 | XMS REPORT ---
Author Author SIMI GARCIA Organization eClinicalWorks Address Unknown Phone Unavailable Care Team Providers Care Compounding Scaler Name Role Phone SIMI GARCIA CP Unavailable Allergies No Known Allergies Problems Problem Type Condition Code Onset Dates Condition Status Problem Diabetes type 2, uncontrolled E11.65 Active Problem Noncompliance Z91.19 Active Medications Medication Code System Code Instructions Start Date End Date Status Dosage Invokana [facility] [address]-01 100 MG Orally Every AM Oct 05, 2015 1 tablet Results No Known Results Summary Purpose eClinicalWorks Submission
--- OUTSIDE RECORDS SUMMARY | 2017-05-13 14:07 | XMS REPORT ---
Author Author GIRMA LOLIS Organization [facility] Address [address] [place] [address] Care Team Providers Care Oem Sales Manager Name Role Phone SHAVONNE RAYOE Unavailable PROBLEMS Type Condition ICD9-CM Code [id number] Code Onset Dates Condition Status SNOMED Code Problem Reina infection of genital region B37.49 Active 867819455 Problem Pain in left shoulder M25.512 Active 58819055 Problem Other chronic pain G89.29 Active 38207338 Problem Dizziness R42 Active 356337699 Problem Diabetes type 2, uncontrolled E11.65 Active 705556710 Problem New daily persistent headache G44.52 Active 805906767 Assessment Diabetes type 2, uncontrolled E11.65 May, Active 004479945 Assessment Hypercholesterolemia E78.0 May, Active 26884989 Problem Arthralgia, unspecified joint M25.50 Active 57623293 Problem Chronic tension-type headache, intractable G44.221 Active 264148681 Problem Restless legs syndrome G25.81 Active 66948919 Problem Other iron deficiency anemia D50.8 Active 90902716 Problem Constipation, unspecified constipation type K59.00 Active 14340799 Problem Morbid obesity due to excess calories E66.01 Active 170346206 Problem Noncompliance Z91.19 Active 6113185 Problem Gastroesophageal reflux disease without esophagitis K21.9 Active 112934569 Problem Non-compliant behavior R46.89 Active 692631212 Problem Neuropathy G62.9 Active 909406067 Problem Obesity E66.9 Active 663343870 Problem Insomnia G47.00 Active 944150811 Assessment Major depressive disorder with single episode, remission status unspecified F32.9 May, Active 19250482 Problem Denial R45.89 Active 18160323 Problem Depression F32.9 Active 38286227 ALLERGIES Substance Reaction Event Type Date Status Victoza rash Drug Allergy May, Active SOCIAL HISTORY No smoking Hx information available PLAN OF CARE VITAL SIGNS Height 62 in 2016-06-20 Weight 197.6 lbs 2016-06-20 Heart Rate 82 bpm 2016-06-20 Respiratory Rate 20 2016-06-20 BMI 36.14 kg/m2 2016-06-20 Blood pressure systolic 118 mmHg 2016-06-20 Blood pressure diastolic 80 mmHg 2016-06-20 MEDICATIONS Medication Instructions Dosage Frequency Start Date End Date Duration Status Trulicity 1.5 MG/0.5ML Subcutaneous once weekly 0.5 ml Dec, Active Trazodone HCl 100 MG Orally Once a day 1 tablet at bedtime 24h Active cetirizine 10 mg 1 tablet by Oral route 1 daily January, Active Gabapentin 600 MG 1 Tablet by Oral route every 8 hours with food Active Pen [place] 31G X 6 MM as directed 24h Aug, Active Ropinirole HCl 4 MG Orally Once a day 1 tablet 1 to 3 hours before bedtime 24h Apr, Active Sertraline HCl 50 mg Orally Once a day 1 tablet 24h May, 30 day (s) Active [place] 5-325 MG Orally 2 times a day 1 tablet as needed for pain 12h Jun Active Lovastatin 40 MG TAKE ONE TABLET BY MOUTH ONCE DAILY WITH THE EVENING MEAL. Active Docusate Sodium 100 MG TAKE 1 CAPSULE TWO TIMES DAILY NEEDED Active Colace 100 MG 1 capsule by Oral route 2 times per day PRN Active Xenical 120 MG Orally Three times a day 1 capsule with meals 8h May, Aug, 30 day(s) Active Cyclobenzaprine HCl 10 MG TAKE 1 TABLET BY MOUTH TWICE DAILY NEEDED FOR MUSCLE PAIN Active Invokana 300 MG Orally Once a day in AM 1 tablet Sep, Active Metformin HCl 1000 MG TAKE 1 TABLET BY MOUTH 2 TIMES PER DAY WITH FOOD 90 Active Chlorzoxazone 500 MG Orally Once a day as needed for pain 1 tablet Active Celebrex 200 MG Orally Once a day as needed for pain 1 capsule Nov, Active Hydrochlorothiazide 12.5 MG TAKE 1 CAPSULE BY MOUTH ONCE DAILY. Active Nexium 40 mg TAKE ONE CAPSULE BY MOUTH ONCE DAILY. 24h Active Topamax 100 Orally Twice a day 1 tablet 12h Apr, Active Ferrous Sulfate 325 (65 Fe) MG TAKE 1 TABLET DAILY 30 Active RESULTS Name Result Date Reference Range ANEMIA PANEL 2016-06-20 Iron Bind.Cap.(TIBC) 245 250-450 UIBC 186 131-425 Iron, Serum 59 27-159 Iron Saturation 24 15-55 Ferritin, Serum 300 15-150 Vitamin B12 643 211-946 Folate (Folic Acid), Serum 15.3 >3.0 WBC 8.5 3.4-10.8 RBC 4.95 3.77-5.28 Hemoglobin 15.6 11.1-15.9 Hematocrit 45.3 34.0-46.6 MCV 92 79-97 MCH 31.5 26.6-33.0 MCHC 34.4 31.5-35.7 RDW 13.5 12.3-15.4 Platelets 276 150-379 Neutrophils 59 Lymphs 33 Monocytes 7 Eos 1 Basos 0 Neutrophils (Absolute) 4.9 1.4-7.0 Lymphs (Absolute) 2.8 0.7-3.1 Monocytes(Absolute) 0.6 0.1-0.9 Eos (Absolute) 0.1 0.0-0.4 Baso (Absolute) 0.0 0.0-0.2 Immature Granulocytes 0 Immature Grans (Abs) 0.0 0.0-0.1 Reticulocyte Count 1.3 0.6-2.6 LIPID PANEL 2016-06-20 Cholesterol, Total 145 100-199 Triglycerides 187 0-149 HDL Cholesterol 37 >39 VLDL Cholesterol [place] 37 5-40 LDL Cholesterol Calc 71 0-99 Comment: CMP 2016-06-20 Glucose, Serum 144 65-99 BUN 17 6-24 Creatinine, Serum 0.92 0.57-1.00 eGFR If NonAfricn Am 68 >59 eGFR If Africn Am 79 >59 BUN/Creatinine Ratio 18 9-23 Sodium, Serum 141 134-144 Potassium, Serum 3.9 3.5-5.2 Chloride, Serum 100 97-108 Carbon Dioxide, Total 22 18-29 Calcium, Serum 9.4 8.7-10.2 Protein, Total, Serum 7.5 6.0-8.5 Albumin, Serum 4.1 3.5-5.5 Globulin, Total 3.4 1.5-4.5 A/G Ratio 1.2 1.1-2.5 Bilirubin, Total 0.5 0.0-1.2 Alkaline Phosphatase, S 67 39-117 AST (SGOT) 9 0-40 ALT (SGPT) 14 0-32 PROCEDURES Procedure Date Ordered Related Diagnosis Body Site VENIPUNCT, ROUTINE* Jun 20, 2016 IRON BINDING TEST Jun 20, 2016 ASSAY OF IRON Jun 20, 2016 LIPID PANEL Jun 20, 2016 COMPREHEN METABOLIC PANEL Jun 20, 2016 Office Visit, Est Pt., Level 4 Jun 20, 2016 VITAMIN B-12 Jun 20, 2016 BLOOD FOLIC ACID SERUM Jun 20, 2016 ASSAY OF FERRITIN Jun 20, 2016 AUTOMATED RETICULOCYTE COUNT Jun 20, 2016 IMMUNIZATIONS No Known Immunizations
--- OUTSIDE RECORDS SUMMARY | 2017-05-13 14:07 | XMS REPORT ---
Author Author LOLIS RAYO [facility] eClinicalWorks Address Unknown Phone Unavailable Care Team Providers Care Temporary Receptionist Name Role Phone LOLIS RAYO Unavailable Allergies [...] due to excess calories E66.01 Active Medications No Known Medications Results No Known Results Summary Purpose eClinicalWorks Submission
--- OUTSIDE RECORDS SUMMARY | 2017-05-13 14:07 | XMS REPORT ---
Author Author LOLIS RAYO Organization eClinicalWorks Address Unknown Phone Unavailable Care Team Providers Care Enginehouse Brakeman Name Role Phone LOLIS RAYO CP Unavailable Allergies No Known Allergies Problems Problem Type Condition Code Onset Dates Condition Status Problem Depression F32.9 Active Problem Other chronic pain G89.29 Active Problem Reina infection of genital region B37.49 Active Problem New daily persistent headache G44.52 Active Assessment Diabetes type 2, uncontrolled E11.65 Active Problem Restless legs syndrome G25.81 Active [...] E66.9 Active Problem Insomnia G47.00 Active Medications No Known Medications Procedures Procedure Coding System Code Date VENIPUNCT, ROUTINE* CPT-4 29278 Jul 13, 2016 COMPREHEN METABOLIC PANEL CPT-4 81678 Jul 13, 2016 Results Name Result Date Reference Range Unit Abnormality Flag ROUTINE VENIPUNCTURE Summary Purpose eClinicalWorks Submission
--- OUTSIDE RECORDS SUMMARY | 2017-05-13 14:07 | XMS REPORT ---
Author Author SIMI GARCIA Organization eClinicalWorks Address Unknown Phone Unavailable Care Team Providers Care Territory Supervisor Name Role Phone SIMI GARCIA CP Unavailable Allergies No Known Allergies Problems Problem Type Condition Code Onset Dates Condition Status Problem Diabetes type 2, uncontrolled E11.65 Active Problem Noncompliance Z91.19 Active Medications Medication Code System Code Instructions Start Date End Date Status Dosage Victoza [facility] [address]-58 18 MG/3ML Subcutaneous Once a day Jul 26, 2015 0.2 ml Januvia [facility] [address]-70 100 MG Orally Once a day December 14, 2014 1 tablet Celebrex [facility] [address]-35 200 MG Orally Once a day as needed for pain December 14, 2014 1 capsule Pen [place] [facility] [address]-54 31G X 6 MM Once a day Aug 31, 2015 as directed Results No Known Results Summary Purpose eClinicalWorks Submission
--- OUTSIDE RECORDS SUMMARY | 2017-05-13 14:07 | XMS REPORT ---
Author Author SIMI GARCIA Organization eClinicalWorks Address Unknown Phone Unavailable Care Team Providers Care Cut Press Operator Name Role Phone SIMI GARCIA CP Unavailable Allergies No Known Allergies Problems Problem Type Condition Code Onset Dates Condition Status Problem Diabetes type 2, uncontrolled E11.65 Active Problem Noncompliance Z91.19 Active Medications No Known Medications Results No Known Results Summary Purpose eClinicalWorks Submission
--- OUTSIDE RECORDS SUMMARY | 2017-05-13 14:07 | XMS REPORT ---
Author Author LOLIS RAYO [facility] eClinicalWorks Address Unknown Phone Unavailable Care Team Providers Care Real Estate Photographer Name Role Phone LOLIS RAYO CP Unavailable [...] Insomnia G47.00 Active Medications No Known Medications Results No Known Results Summary Purpose eClinicalWorks Submission
[2017-05-13] MEDS ORDERED: PROPOFOL INJECTION 50 ML IV ONE (14:10)
[2017-05-13] MEDS ORDERED: MIDAZOLAM 2 MG/2 ML (VERSED) VIAL ONE (14:12)
[2017-05-13] MEDS ORDERED: LACTATED RINGERS 1,000 ML IV ONE (14:33)
--- NOTE | 2017-05-13 14:37 | Progress Note-Pre Operative ---
Pre-Operative Progress Note H&P Reviewed The H&P was reviewed, patient examined and no changes noted. Time Seen by Provider: 14:31 Date H&P Reviewed: May 13, 2017 Time H&P Reviewed: 14:35 Pre-Operative Diagnosis: Gastritis, Screening colonoscopy CORETTA RAMOS DO May 13, 2017 14:37
[2017-05-13] MEDS ORDERED: LACTATED RINGERS 1,000 ML IV SCH (14:45)
[2017-05-13] MEDS ORDERED: ROPI4TAB3 PO (14:59)
[2017-05-13] MEDS ORDERED: TOPI50TA13 PO (14:59)
[2017-05-13] MEDS ORDERED: DOCU100C37 PO (14:59)
[2017-05-13] MEDS ORDERED: GABA600T2 PO (14:59)
[2017-05-13] MEDS ORDERED: CYCL10TA9 PO (14:59)
[2017-05-13] MEDS ORDERED: METF1000 PO (14:59)
[2017-05-13] MEDS ORDERED: TRAZ150T72 PO (14:59)
[2017-05-13] MEDS ORDERED: DICL100T3 PO (14:59)
[2017-05-13] MEDS ORDERED: SPIR50TA2 PO (14:59)
[2017-05-13] MEDS ORDERED: DULA1.5P2 SQ (14:59)
[2017-05-13] MEDS ORDERED: CANA300T PO (14:59)
[2017-05-13] MEDS ORDERED: LOVA40TA2 PO (14:59)
[2017-05-13] MEDS ORDERED: NF-ESOM40C PO (14:59)
[2017-05-13] MEDS ORDERED: SERT50TA9 PO (14:59)
[2017-05-13] MEDS ORDERED: FERR-74 PO (14:59)
[2017-05-13] MEDS ORDERED: proPOfol 200 MG/20 ML (DIPRIVAN) VIAL IV ONE (15:18)
[2017-05-13] MEDS ORDERED: HURRICAINE EXT TUBE (BENZOCAINE) ONE (15:19)
--- NOTE | 2017-05-13 15:43 | Progress Note-Post Operative ---
Post-Operative Progess Note Surgeon (s)/Color Developer (s) Surgeon CORETTA RAMOS DO Color Developer: none Pre-Operative Diagnosis Gastritis, Screening colonoscopy Post-Operative Diagnosis Gastritis Internal Hemorrhoids Procedure & Operative Findings Date of Procedure 05/13/17 Procedure Performed/Findings EGD with bx Colonoscopy Anesthesia Type IV sedation by FERTILIZING MACHINE OPERATOR Estimated Blood Loss Estimated blood loss (mL): scant Specimens/Packing Specimens Removed Bx of antrum Bx of GE jxCORETTA Ortiz DO May 13, 2017 15:43
[2017-05-13 15:45] VITALS: BP 112/67
--- NOTE | 2017-05-13 15:47 | Endoscopy Discharge Instruct ---
Endo Procedure/Findings Findings 1.: Gastritis 2.: Internal Hemorrhoids Discharge Instructions - Activity: You might feel a little sleepy until tomorrow. This is due to the medicine you received to relax you. Until tomorrow, you should: NOT drive a car, operate machinery or power tools. NOT drink any alcoholic beverages. NOT make any important decisions or sign importortant papers. Do not return to work until tomorrow, unless otherwise instructed. Resume previous activities tomorrow. Diet: Start by taking liquids. If you tolerate liquids, advance to solid food. Make appointment for 1 week, Instructions: 1.: Colonscopy in 10 years Notify Physician - If you experience excessive bleeding, unusual abdominal pain, fever, or chest pain, contact your doctor immediately. [phone] Follow-Up: - I have received and understand the above instructions and will call my doctor if I have any further questions. Patient Signature Date Nurse Signature Other (Relationship) CORETTA RAMOS DO May 13, 2017 15:47
[2017-05-13] MEDS ORDERED: HURRICAINE EXT TUBE (BENZOCAINE) XX ONE (16:00)
[2017-05-13 16:12] VITALS: BP 118/72
[2017-05-13 16:20] VITALS: BP 118/72
--- NOTE | 2017-05-13 21:08 | OPERATIVE REPORT ---
DATE OF SERVICE: 05/13/2017 PREOPERATIVE DIAGNOSES: 1. Gastritis. 2. Screening colonoscopy. POSTOPERATIVE DIAGNOSES: 1. Gastritis. 2. Internal hemorrhoids. PROCEDURES: 1. EGD with biopsy. 2. Colonoscopy. SURGEON: Joaquim White DO. CLIENT LIAISON: None. ANESTHESIA: IV sedation by CRIMINAL RESEARCHER. SPECIMEN: One biopsy from the antrum of the stomach and one biopsy from the GE junction. BLOOD LOSS: Scant. FLUIDS: Per anesthesia. POSTOPERATIVE CONDITION: Stable. INDICATION FOR PROCEDURE: The patient is a 62-year-old female who has been having problems with burping and then foul smelling burping, possibly gastritis for many years, needed to get this looked at and also never had a colonoscopy. FINDINGS: The patient had some gastritis in the stomach and since it looked like changes in the GE junction at the Z line, a biopsy was done here as well as the antrum and colonoscopy performed only showed some internal hemorrhoids. PROCEDURE NOTE: After informed consent was obtained, the patient was brought to the endoscopy suite, placed in the bed in left lateral decubitus position. She was administered IV sedation by the CRIMINAL RESEARCHER who then monitored her vitals the entire time. Inserted the scope down the mouth into the esophagus and into the stomach. Upon entering the stomach, I noted some erythema. Pushed into the duodenum and duodenum looked okay. Backed up and took a picture of the antrum, and then did a biopsy here. Retroflexed the scope. Did not see a hiatal hernia. No ulcers or any other polyps. Pulled the scope back up into the esophagus and right at the GE junction, took a picture of the Z-line. Looked like there might have been some changes. Did a biopsy right at the Z-line and then slowly pulled the scope back. Also, appeared to be some almost like whitish plaques or bumps and I did get biopsy of one of these and the esophagus as well, and then removed the scope. The patient tolerated the procedure and then switched to different scope, and then started the colonoscopy. Inserted the scope into the rectum. Pushed all the way to 160 cm, all the way to cecum. Took a picture of the appendiceal orifice then able to get to the opening of the ileocecal valve. Took a picture and then slowly withdrew the scope insufflating to look circumferentially weeks, looking at the cecum, up the ascending colon to the hepatic flexure, then down the transverse colon, splenic flexure, into the descending colon and finally down into the sigmoid and into the rectum. Retroflexed in rectal vault, saw some internal hemorrhoids, and took a picture of this. Did not see any other pathology. Scope was removed. The patient tolerated procedure well. She was recovered in the endoscopy suite. Job ID: [id number] DocumentID: [id number] Dictated Date: 05/13/2017 16:00:26 Automation Control Integrator Date: 05/13/2017 20:55:17 Dictated By: JOAQUIM WHITE DO
== END 2017-05-13 16:20 | disposition home or self-care (01) ==
LOC: ENDO 14:00
PROVIDERS: ATTEND Surgery
DX: Z12.11 Encounter for screening for malignant neoplasm of colon (principal); K29.70 Gastritis, unspecified, without bleeding; K64.8 Other hemorrhoids; E11.9 Type 2 diabetes mellitus without complications; E78.5 Hyperlipidemia, unspecified; I10 Essential (primary) hypertension; M19.91 Primary osteoarthritis, unspecified site; G25.81 Restless legs syndrome; E66.9 Obesity, unspecified; Z68.37 Body mass index [BMI] 37.0-37.9, adult; Z79.899 Other long term (current) drug therapy
CPT/HCPCS: 82962; 88305

== ENCOUNTER → 2019-06-15 | Outpatient (CLI) | payer SELFPAY ==
[~2019-06-15] MED LIST: CANA300T PO; CYCL10TA9 PO; DICL100T83 PO; DOCU100C37 PO; DULA1.5P2 SQ; FERR325T18 PO; GBPN600T PO; LOVA40TA2 PO; METF-399 PO; NF-ESOM40C PO; ROPI4TAB5 PO; SERT50TA9 PO; SPIR50TA4 PO; TOPI50TA13 PO; TRAZ150T72 PO
--- NOTE | 2019-06-15 10:20 | Diagnostic Imaging Report ---
PROCEDURE: US abdomen complete. TECHNIQUE: Multiple real-time grayscale images were obtained over the abdomen in various projections. INDICATION: Abdominal pain. The liver is enlarged at 19.6 cm. No discrete liver mass is identified. Portal vein is patent and shows normal direction of flow. Gallbladder is without stones or sludge. No definite wall thickening is seen. There is no biliary duct dilatation. The peripancreatic tail is obscured by bowel gas. The spleen is normal in size at 8.4 cm. Proximal aorta is nonaneurysmal. Mid and distal aorta are obscured. IVC is patent. Right kidney contains approximately 1.6 x 1.2 cm cyst. Left kidney contains a probable cyst measuring 2.3 x 1.7 cm. No calculi or hydronephrosis is identified. There is no ascites. IMPRESSION: 1. Hepatomegaly. 2. No evidence of cholelithiasis or acute cholecystitis. 3. Bilateral renal cysts. Dictated by: Dictated on workstation # [id number]
== END ==
LOC: RAD 08:20
PROVIDERS: ATTEND Registered Nurse
DX: N28.1 Cyst of kidney, acquired (principal); R16.0 Hepatomegaly, not elsewhere classified
CPT/HCPCS: 76700

== ENCOUNTER → 2022-01-23 | Outpatient (CLI) | payer MEDICARE ==
[~2022-01-23] MED LIST changes: +CYCL10TA25 PO; -CYCL10TA9 PO; -DICL100T83 PO; +NF-DICLOTA PO; +SERT-413 PO; -SERT50TA9 PO
== END | disposition home or self-care (01) ==
LOC: PREOP 05:30
PROVIDERS: ATTEND Specialist
DX: Z01.818 Encounter for other preprocedural examination (principal)

== ENCOUNTER 2022-02-02 09:41 | Day surgery (SDC) | payer MEDICARE, MEDICAID ==
[~2022-02-02] VITALS: Ht 157.5 cm; Wt 82.0 kg
[2022-02-02] MEDS ORDERED: MOXIFLOXACIN OPHTH SOLN 5 MG/ML 0.3 ML SYRINGE OP ONE (10:45)
[2022-02-02] MEDS ORDERED: POVIDONE (BETADINE) OPHTH SOLN 5% 30 ML OP ONE (10:45)
[2022-02-02] MEDS ORDERED: TIMOLOL MALEATE 0.5% 5 ML (TIMOPTIC) BTL OU PRN (10:45)
[2022-02-02] MEDS ORDERED: LIDOCAINE PF 1% 2 ML VIAL IR PRN (10:45)
[2022-02-02] MEDS: TETRACAINE 0.5% OPHTH SOLN 4 ML BTL (SINGLE DOSE ONLY) OU PRN ×4 (10:52→11:11)
[2022-02-02] MEDS: PHENYLEPHRINE 10% OPHTH (NEO-SYN) 5 ML BTL OU SCH ×3 (11:00→11:12)
[2022-02-02] MEDS: TROPICAMIDE 1% OPH SOLN (MYDRIACYL) 15 ML BTL OP SCH ×3 (11:00→11:12)
[2022-02-02 11:21] VITALS: BP 143/88
--- NOTE | 2022-02-02 11:34 | Ophthalmologist Pre-Op Note ---
Pre-Operative Progress Note H&P Reviewed The H&P was reviewed, patient examined and no changes noted. Date H&P Reviewed: February 02, 2022 Time H&P Reviewed: 11:34 Pre-Op Dx Cataract, Right Eye HUMBLE HAIDER MD February 02, 2022 11:34
[2022-02-02] MEDS ORDERED: MIDAZOLAM 2 MG/2 ML (VERSED) VIAL ONE (11:37)
--- NOTE | 2022-02-02 11:59 | Ophthalmology Operative Report ---
Cataract removal/placement IOL PREOPERATIVE DIAGNOSIS: Cataract Right Eye POSTOPERATIVE DIAGNOSIS: Cataract Right Eye PROCEDURE: Cataract removal and placement of posterior chamber implant, right eye SURGEON: Mark Haider ANESTHESIA: Topical with sedation COMPLICATIONS: None ESTIMATED BLOOD LOSS: Minimal DESCRIPTION OF PROCEDURE: After proper informed consent was obtained, the patient, a 67 female, was taken to the Operating Room and the right eye was anesthetized with tetracaine. The right eye was then prepped and draped in the usual manner. A wire lid speculum was placed. A paracentesis was made at the left hand position. Preservative free lidocaine was injected into the anterior chamber followed by viscoelastic. A clear corneal incision was made in the temporal position. A capsulorrhexis was preformed and the central nuclear and cortical material were removed. The posterior capsule was polished and Wilfredo 19.0 AU00T0 IOL was placed into the capsular bag. The residual viscoelastic was aspirated and balanced saline solution was injected into the anterior chamber. Moxifloxacin was injected into the anterior chamber. The wound was checked and found to be water tight. The patient tolerated the procedure well without complications. MARK HAIDER MD February 02, 2022 11:59
[2022-02-02 12:16] VITALS: BP 119/75
[2022-02-02] MEDS ORDERED: acetaZOLAMIDE ER 500 MG CAP (DIAMOX SEQUELS) PO ONE (12:30)
--- NOTE | 2022-02-02 14:05 | Anesthesia-General Post-Op ---
MAC Patient Condition Mental Status/LOC: Same as Preop Cardiovascular: Satisfactory Nausea/Vomiting: Absent Respiratory: Satisfactory Pain: Controlled Complications: Absent Post Op Complications Complications None Follow Up Care/Instructions Patient Instructions None needed. Anesthesiology Discharge Order Discharge Order Patient is doing well, no complaints, stable vital signs, no apparent adverse anesthesia problems. No complications reported per nursing. JESSICA JONES CRNA February 02, 2022 14:05
== END 2022-02-02 12:18 | disposition home or self-care (01) ==
LOC: SDC 09:41
PROVIDERS: ATTEND Specialist
DX: H25.9 Unspecified age-related cataract (principal); E11.36 Type 2 diabetes mellitus with diabetic cataract; Z79.84 Long term (current) use of oral hypoglycemic drugs; Z79.899 Other long term (current) drug therapy
CPT/HCPCS: 66984; 82947; V2632

== ENCOUNTER 2022-02-16 10:21 | Day surgery (SDC) | payer MEDICARE, MEDICAID ==
[~2022-02-16] VITALS: Ht 157.5 cm; Wt 82.0 kg
[2022-02-16] MEDS ORDERED: MOXIFLOXACIN OPHTH SOLN 5 MG/ML 0.3 ML SYRINGE OP ONE (10:30)
[2022-02-16] MEDS ORDERED: LIDOCAINE PF 1% 2 ML VIAL IR PRN (10:30)
[2022-02-16] MEDS ORDERED: POVIDONE (BETADINE) OPHTH SOLN 5% 30 ML OP ONE (10:30)
[2022-02-16] MEDS ORDERED: TIMOLOL MALEATE 0.5% 5 ML (TIMOPTIC) BTL OU PRN (10:30)
[2022-02-16] MEDS: TETRACAINE 0.5% OPHTH SOLN 4 ML BTL (SINGLE DOSE ONLY) OU PRN ×4 (10:31→10:47)
[2022-02-16 10:35] VITALS: BP 139/81
[2022-02-16] MEDS: PHENYLEPHRINE 10% OPHTH (NEO-SYN) 5 ML BTL OU SCH ×3 (10:37→10:47)
[2022-02-16] MEDS: TROPICAMIDE 1% OPH SOLN (MYDRIACYL) 15 ML BTL OP SCH ×3 (10:37→10:47)
[2022-02-16] MEDS ORDERED: MIDAZOLAM 2 MG/2 ML (VERSED) VIAL ONE ×2 (11:27→11:47)
--- NOTE | 2022-02-16 11:30 | Ophthalmologist Pre-Op Note ---
Pre-Operative Progress Note H&P Reviewed The H&P was reviewed, patient examined and no changes noted. Date H&P Reviewed: February 16, 2022 Time H&P Reviewed: 11:29 Pre-Op Dx Cataract, Left Eye HUMBLE HAIDER MD February 16, 2022 11:30
--- NOTE | 2022-02-16 11:55 | Ophthalmology Operative Report ---
Cataract removal/placement IOL PREOPERATIVE DIAGNOSIS: Cataract Left Eye POSTOPERATIVE DIAGNOSIS: Cataract Left Eye PROCEDURE: Cataract removal and placement of posterior chamber implant, left eye SURGEON: Mark Haider ANESTHESIA: Topical with sedation COMPLICATIONS: None ESTIMATED BLOOD LOSS: Minimal DESCRIPTION OF PROCEDURE: After proper informed consent was obtained, the patient, a 67 female, was taken to the Operating Room and the left eye was anesthetized with tetracaine. The left eye was then prepped and draped in the usual manner. A wire lid speculum was placed. A paracentesis was made at the left hand position. Preservative free lidocaine was injected into the anterior chamber followed by viscoelastic. A clear corneal incision was made in the temporal position. A capsulorrhexis was preformed and the central nuclear and cortical material were removed. The posterior capsule was polished and an Wilfredo 20.5 AU00T0 was placed into the capsular bag. The residual viscoelastic was aspirated and balanced saline solution was injected into the anterior chamber. Moxifloxacin was injected into the anterior chamber. The wound was checked and found to be water tight. The patient tolerated the procedure well without complications. MARK HAIDER MD February 16, 2022 11:55
[2022-02-16 11:56] VITALS: BP 150/84
[2022-02-16] MEDS ORDERED: acetaZOLAMIDE ER 500 MG CAP (DIAMOX SEQUELS) PO ONE (12:30)
--- NOTE | 2022-02-16 13:51 | Anesthesia-General Post-Op ---
MAC Patient Condition Mental Status/LOC: Same as Preop Cardiovascular: Satisfactory Nausea/Vomiting: Absent Respiratory: Satisfactory Pain: Controlled Complications: Absent Post Op Complications Complications None Follow Up Care/Instructions Patient Instructions None needed. Anesthesiology Discharge Order Discharge Order Patient is doing well, no complaints, stable vital signs, no apparent adverse anesthesia problems. No complications reported per nursing. SHAISTA LYN CRNA February 16, 2022 13:51
== END 2022-02-16 12:12 | disposition home or self-care (01) ==
LOC: SDC 10:21
PROVIDERS: ATTEND Specialist
DX: E11.36 Type 2 diabetes mellitus with diabetic cataract (principal); H25.9 Unspecified age-related cataract; Z79.84 Long term (current) use of oral hypoglycemic drugs
CPT/HCPCS: 66984; V2632